=== PATIENT | female | born 1935 | race Caucasian/White ===

== ENCOUNTER → 2016-06-01 | Outpatient (CLI) | payer MEDICARE ==
[~2016-06-01] MED LIST: ASPI81 PO; CALC600T34 PO; LUTE6CAP7 PO; METHTAB PO; OCUVTAB PO; PRIN10TA PO; STOO100C PO; ZOCO80TA PO
[2016-06-01 16:22] LABS: ALKALINE PHOSPHATASE 53 U/L (45-117); TOTAL BILIRUBIN ADULT 0.5 MG/DL (0.2-1.0)
[2016-06-01 16:31] LABS: ALT (GPT) 29 U/L (10-53); AST (GOT) 45 U/L (15-37); INDIRECT BILIRUBIN 0.4 MG/DL (0.0-0.8)
== END ==
LOC: PLAB 12:32
PROVIDERS: ATTEND Internal Medicine Gastroenterology
DX: R93.2 Abnormal findings on diagnostic imaging of liver and biliary tract (principal)
CPT/HCPCS: 36415; 80076

== ENCOUNTER → 2016-07-03 | Outpatient (CLI) | payer MEDICARE ==
[2016-07-03 09:25] LABS: HEMATOCRIT 39.4 % (35.0-46.0); MEAN CELL VOLUME 95.1 FL (80.0-100.0); MEAN CORPUSCULAR HEMOGLOBIN 32.4 PG (27.0-34.0); MEAN CORPUSCULAR HGB CONC 34.1 % (32.0-36.0); PLATELET COUNT 296 TH/MM3 (150-450); RED BLOOD COUNT 4.14 MIL/MM3 (4.00-5.30); RED CELL DISTRIBUTION WIDTH 12.4 % (11.6-17.2); REVIEW FLAG FINAL; WHITE BLOOD COUNT 4.1 TH/MM3 (4.0-11.0)
[2016-07-03 10:24] LABS: ALKALINE PHOSPHATASE 54 U/L (45-117); ALT (GPT) 22 U/L (10-53); ANION GAP 7 MEQ/L (5-15); AST (GOT) 27 U/L (15-37); BICARBONATE 29.7 MEQ/L (21.0-32.0); BLOOD UREA NITROGEN 14 MG/DL (7-18); CHLORIDE 102 MEQ/L (98-107); GLOMERULAR FILTRATION RATE 61 ML/MIN (>89); GLUCOSE,FASTING 74 MG/DL (74-99); HDL CHOLESTEROL 87.1 MG/DL (40.0-60.0); LDL CHOLESTEROL 70 MG/DL (0-99); LDL CHOLESTEROL DIRECT 87 MG/DL (0-99); SODIUM (NA) 139 MEQ/L (136-145); TOTAL BILIRUBIN ADULT 0.6 MG/DL (0.2-1.0)
[2016-07-03 10:26] LABS: POTASSIUM 4.6 MEQ/L (3.5-5.1)
[2016-07-03 10:29] LABS: HEMOGLOBIN A1a 1.1 %; HEMOGLOBIN A1b 0.8 %; HEMOGLOBIN Ao 85.3 %; HEMOGLOBIN F 1.3 %; HEMOGLOBIN LA1C 1.9 %; HEMOGLOBIN P3 3.7 %
== END ==
LOC: PLAB 07:25
PROVIDERS: ATTEND Family Medicine
DX: I25.10 Atherosclerotic heart disease of native coronary artery without angina pectoris (principal); R53.83 Other fatigue; E78.2 Mixed hyperlipidemia; I10 Essential (primary) hypertension; R73.01 Impaired fasting glucose
CPT/HCPCS: 36415; 80053; 80061; 83036; 83721; 84443; 85027

== ENCOUNTER → 2016-08-25 | Outpatient (CLI) | payer MEDICARE ==
[2016-08-25 14:07] LABS: INDIRECT BILIRUBIN 0.2 MG/DL (0.0-0.8); TOTAL BILIRUBIN ADULT 0.3 MG/DL (0.2-1.0)
== END ==
LOC: PLAB 11:16
PROVIDERS: ATTEND Internal Medicine Gastroenterology
DX: R10.13 Epigastric pain (principal); R93.2 Abnormal findings on diagnostic imaging of liver and biliary tract; R93.3 Abnormal findings on diagnostic imaging of other parts of digestive tract; Z12.11 Encounter for screening for malignant neoplasm of colon; Z83.71 Family history of colonic polyps
CPT/HCPCS: 36415; 80076

== ENCOUNTER → 2016-10-19 | Outpatient (CLI) | payer MEDICARE ==
[2016-10-19 09:45] LABS: HEMATOCRIT 41.6 % (35.0-46.0); MEAN CELL VOLUME 95.6 FL (80.0-100.0); MEAN CORPUSCULAR HEMOGLOBIN 31.4 PG (27.0-34.0); MEAN CORPUSCULAR HGB CONC 32.9 % (32.0-36.0); PLATELET COUNT 272 TH/MM3 (150-450); RED BLOOD COUNT 4.35 MIL/MM3 (4.00-5.30); RED CELL DISTRIBUTION WIDTH 12.6 % (11.6-17.2); REVIEW FLAG FINAL; WHITE BLOOD COUNT 4.7 TH/MM3 (4.0-11.0)
[2016-10-19 10:00] LABS: ANION GAP 5 MEQ/L (5-15); AST (GOT) 21 U/L (15-37); BICARBONATE 30.5 MEQ/L (21.0-32.0); BLOOD UREA NITROGEN 16 MG/DL (7-18); CHLORIDE 101 MEQ/L (98-107); GLOMERULAR FILTRATION RATE 62 ML/MIN (>89); GLUCOSE,FASTING 83 MG/DL (74-99); POTASSIUM 4.8 MEQ/L (3.5-5.1); SODIUM (NA) 136 MEQ/L (136-145)
[2016-10-19 10:02] LABS: ALT (GPT) 25 U/L (10-53)
[2016-10-19 10:03] LABS: ALKALINE PHOSPHATASE 59 U/L (45-117); LDL CHOLESTEROL DIRECT 79 MG/DL (0-99); TOTAL BILIRUBIN ADULT 0.5 MG/DL (0.2-1.0)
[2016-10-19 10:23] LABS: LDL CHOLESTEROL 81 MG/DL (0-99)
== END ==
LOC: PLAB 06:57
PROVIDERS: ATTEND Family Medicine
DX: I25.10 Atherosclerotic heart disease of native coronary artery without angina pectoris (principal); E78.2 Mixed hyperlipidemia; I10 Essential (primary) hypertension
CPT/HCPCS: 36415; 80053; 80061; 83721; 85027

== ENCOUNTER → 2017-01-24 | Outpatient (CLI) | payer MEDICARE ==
--- NOTE | 2017-01-23 08:10 | MH ---
cc: EUGENE KWOK DATE OF ADMISSION: 01/24/2017 ADMISSION DIAGNOSIS Cloudy posterior capsule, right eye. HISTORY OF PRESENT ILLNESS This 81-year-old white female is coming through [facility] for the purpose of a YAG laser posterior capsulotomy of the right eye. She has a history of cataract surgery with intraocular lens implants in the past and has done well but has had decrease in visual acuity in the right eye and was found to have a cloudy posterior capsule, greater in the right eye than the left. She has therefore elected to have a YAG laser posterior capsulotomy on the right eye at this time. She does also have a history of macular degeneration which is the wet form in her right eye causing a lot of her acuity problems as well. The patient's retinal specialist Dr. Mcgee told her she could have this procedure, that it might help some. OTHER PAST MEDICAL HISTORY 1. 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 2. Cardiac catheterization. 3. Nuclear stress test, was okay. PAST SURGICAL HISTORY 1. Tonsillectomy and adenoidectomy. 2. Vaginal hysterectomy with CHATO repair in 1979, posterior repair 2007. 3. She has had dental surgeries. 4. The above-mentioned cataract surgery in both eyes. MEDICATIONS Daily medications include: 1. Lutein 20 mg at bedtime. 2. Areds 2 vitamins twice a day. 3. Bethanechol. 4. Omeprazole. 5. Kim. 6. Lisinopril. 7. Estrogen. 8. Zocor. 9. 81 mg of aspirin. 10. Calcium. 11. Osteo Biflex. ALLERGIES No known allergies. SOCIAL HISTORY Noncontributory. FAMILY HISTORY Family history is positive for brother with cataracts. REVIEW OF SYSTEMS Noncontributory. OCULAR EXAM The patient's best corrected visual acuity is 20/400 in the right eye, 20/20 -3 in the left. Visual thompson are full to confrontation testing. Extraocular muscle exam reveals full versions with orthophoria at distance and near. Pupils are 3 mm equal, round, reactive to light without afferent defect. There is distortion on the Amsler grid in the right eye. The left eye is within normal limits. Anterior segment examination reveals some subconjunctival hemorrhage in the right eye secondary to recent intravitreal injection. There is a posterior chamber intraocular lens in place bilaterally with a cloudy posterior capsule much greater in the right eye than the left. Intraocular pressure is 21 in the right eye and 20 in the left by applanation tonometry. Dilated fundus exam revealed sharp disks with cup-to-disk ratio 0.3 bilaterally. There is peripapillary atrophy bilaterally. There is some granularity in the left macula. In the right macula there is retinal pigment epithelial change noted. A posterior vitreous detachment is present bilaterally. There is some drusen noted at the end of the superotemporal vessel arcade. IMPRESSION 1. Cloudy posterior capsule right eye greater than left. 2. Pseudophakia both eyes. 3. Macular degeneration, active in wet form which is severe in the right eye and dry form in the left eye. 4. Posterior vitreous detachment both eyes. PLAN YAG laser posterior capsulotomy of the right eye through [facility]. MD BRO Louis/MARY /9:04 AM /8:06 AM
[~2017-01-24] MED LIST changes: +BALANCED SALT SOLN OPHT IRRIG 15 ML BTL ONE; +FLUOROMETHOLONE 0.25% OPHT SUSP 5 ML BTL ONE; +FLUOROMETHOLONE 0.25% OPHT SUSP 5 ML BTL RIGHT EYE ONE; +HYPROMELLOSE 0.3 % OPTH GEL 10 GM (0.34 FL OZ) TUBE ONE; +PHENYLEPHRINE HCL 2.5% OPTH SOLN 2 ML BTL ONE; +PHENYLEPHRINE HCL 2.5% OPTH SOLN 2 ML BTL RIGHT EYE ONE; +PROPARACAINE HCL 0.5% OPHT SOLN 15 ML BTL ONE; +PROPARACAINE HCL 0.5% OPHT SOLN 15 ML BTL RIGHT EYE ONE; +TROPICAMIDE 1% OPHT SOLN 15 ML BTL ONE; +TROPICAMIDE 1% OPHT SOLN 15 ML BTL RIGHT EYE ONE
--- NOTE | 2017-01-24 11:08 | MP ---
cc: EUGENE SMITH M.D. DATE OF SURGERY 01/24/2017 PREOPERATIVE DIAGNOSIS Cloudy posterior capsule right eye. POSTOPERATIVE DIAGNOSIS Cloudy posterior capsule right eye. OPERATION YAG laser posterior capsulotomy, right eye. SURGEON Eugene Smith MD ANESTHESIA Topical COMPLICATIONS None INDICATIONS See history and physical previously dictated. PROCEDURE The patient arrived at [facility]. Blood pressure was 142/81, pulse 74, respirations 16. A drop of Alphagan P and Mydriacyl were instilled in the right eye. The patient was seated at the YAG laser. A drop of Alcaine was instilled in the right eye and a YAG laser posterior capsulotomy lens was placed on the anterior surface of the right cornea. YAG laser posterior capsulotomy was carried out utilizing 23 exposures of 1.5 millijoules. An adequate opening was seen following the procedure. A drop of Alphagan P was instilled topically. The patient was given a prescription for a topical steroid to be used four times per day and has an appointment for follow up on the first postoperative day in my office. The patient left the [facility] in satisfactory condition. MD BRO Louis/MEME /10:28 AM /10:48 AM
== END ==
LOC: PHSDC 07:14
PROVIDERS: ATTEND Ophthalmology
DX: H26.491 Other secondary cataract, right eye (principal); H35.3210 Exudative age-related macular degeneration, right eye, stage unspecified; H35.3120 Nonexudative age-related macular degeneration, left eye, stage unspecified; H43.813 Vitreous degeneration, bilateral; Z96.1 Presence of intraocular lens

== ENCOUNTER → 2017-02-08 | Outpatient (CLI) | payer MEDICARE ==
[~2017-02-08] MED LIST changes: -BALANCED SALT SOLN OPHT IRRIG 15 ML BTL ONE; -FLUOROMETHOLONE 0.25% OPHT SUSP 5 ML BTL ONE; -FLUOROMETHOLONE 0.25% OPHT SUSP 5 ML BTL RIGHT EYE ONE; -HYPROMELLOSE 0.3 % OPTH GEL 10 GM (0.34 FL OZ) TUBE ONE; -PHENYLEPHRINE HCL 2.5% OPTH SOLN 2 ML BTL ONE; -PHENYLEPHRINE HCL 2.5% OPTH SOLN 2 ML BTL RIGHT EYE ONE; -PROPARACAINE HCL 0.5% OPHT SOLN 15 ML BTL ONE; -PROPARACAINE HCL 0.5% OPHT SOLN 15 ML BTL RIGHT EYE ONE; -TROPICAMIDE 1% OPHT SOLN 15 ML BTL ONE; -TROPICAMIDE 1% OPHT SOLN 15 ML BTL RIGHT EYE ONE
[2017-02-08 09:59] LABS: HEMATOCRIT 41.6 % (35.0-46.0); MEAN CELL VOLUME 97.7 FL (80.0-100.0); MEAN CORPUSCULAR HEMOGLOBIN 32.9 PG (27.0-34.0); MEAN CORPUSCULAR HGB CONC 33.7 % (32.0-36.0); PLATELET COUNT 298 TH/MM3 (150-450); RED BLOOD COUNT 4.26 MIL/MM3 (4.00-5.30); REVIEW FLAG FINAL; WHITE BLOOD COUNT 4.8 TH/MM3 (4.0-11.0)
[2017-02-08 10:24] LABS: ANION GAP 5 MEQ/L (5-15); AST (GOT) 19 U/L (15-37); BICARBONATE 30.8 MEQ/L (21.0-32.0); BLOOD UREA NITROGEN 17 MG/DL (7-18); CHLORIDE 99 MEQ/L (98-107); GLOMERULAR FILTRATION RATE 67 ML/MIN (>89); GLUCOSE,FASTING 80 MG/DL (74-99); SODIUM (NA) 135 MEQ/L (136-145)
[2017-02-08 10:30] LABS: ALKALINE PHOSPHATASE 56 U/L (45-117); ALT (GPT) 21 U/L (10-53); HDL CHOLESTEROL 92.7 MG/DL (40.0-60.0); LDL CHOLESTEROL 69 MG/DL (0-99); LDL CHOLESTEROL DIRECT 85 MG/DL (0-99); TOTAL BILIRUBIN ADULT 0.5 MG/DL (0.2-1.0)
== END ==
LOC: PLAB 07:33
PROVIDERS: ATTEND Family Medicine
DX: I25.10 Atherosclerotic heart disease of native coronary artery without angina pectoris (principal); E78.2 Mixed hyperlipidemia; I10 Essential (primary) hypertension
CPT/HCPCS: 36415; 80053; 80061; 83721; 85027

== ENCOUNTER → 2017-02-16 | Outpatient (CLI) | payer MEDICARE ==
[2017-02-16 16:15] LABS: INDIRECT BILIRUBIN 0.3 MG/DL (0.0-0.8); TOTAL BILIRUBIN ADULT 0.4 MG/DL (0.2-1.0)
== END ==
LOC: PLAB 11:50
PROVIDERS: ATTEND Internal Medicine Gastroenterology
DX: R74.0 Nonspecific elevation of levels of transaminase and lactic acid dehydrogenase [LDH] (principal)
CPT/HCPCS: 36415; 80076

== ENCOUNTER → 2017-05-07 | Outpatient (CLI) | payer MEDICARE ==
[2017-05-07 09:42] LABS: HEMATOCRIT 40.4 % (35.0-46.0); HEMOGLOBIN 13.7 GM/DL (11.6-15.3); MEAN CELL VOLUME 96.3 FL (80.0-100.0); MEAN CORPUSCULAR HEMOGLOBIN 32.8 PG (27.0-34.0); MEAN PLATELET VOLUME 8.6 FL (7.0-11.0); PLATELET COUNT 286 TH/MM3 (150-450); RED BLOOD COUNT 4.19 MIL/MM3 (4.00-5.30); RED CELL DISTRIBUTION WIDTH 11.9 % (11.6-17.2); WHITE BLOOD COUNT 4.6 TH/MM3 (4.0-11.0)
[2017-05-07 10:03] LABS: ALBUMIN 3.6 GM/DL (3.4-5.0); BICARBONATE 29.9 MEQ/L (21.0-32.0); BLOOD UREA NITROGEN 14 MG/DL (7-18); CALCIUM 8.6 MG/DL (8.5-10.1); CHLORIDE 99 MEQ/L (98-107); CREATININE 0.83 MG/DL (0.50-1.00); GLOMERULAR FILTRATION RATE 66 ML/MIN (>89); GLUCOSE,FASTING 80 MG/DL (74-99); SODIUM (NA) 135 MEQ/L (136-145)
[2017-05-07 10:05] LABS: ALT (GPT) 25 U/L (10-53); AST (GOT) 20 U/L (15-37); CHOLESTEROL 182 MG/DL (120-200); TRIGLYCERIDES 62 MG/DL (42-150)
[2017-05-07 10:08] LABS: ALKALINE PHOSPHATASE 61 U/L (45-117); CHOLESTEROL/ HDL RATIO 2.14 RATIO; HDL CHOLESTEROL 84.8 MG/DL (40.0-60.0); LDL CHOLESTEROL 85 MG/DL (0-99); LDL CHOLESTEROL DIRECT 85 MG/DL (0-99); TOTAL BILIRUBIN ADULT 0.5 MG/DL (0.2-1.0); TOTAL PROTEIN 7.3 GM/DL (6.4-8.2)
== END ==
LOC: PLAB 07:31
PROVIDERS: ATTEND Family Medicine
DX: I25.10 Atherosclerotic heart disease of native coronary artery without angina pectoris (principal); E78.2 Mixed hyperlipidemia; I10 Essential (primary) hypertension
CPT/HCPCS: 36415; 80053; 80061; 83721; 85027

== ENCOUNTER → 2017-08-09 | Outpatient (CLI) | payer MEDICARE ==
[2017-08-09 13:04] LABS: HEMATOCRIT 40.1 % (35.0-46.0); HEMOGLOBIN 13.5 GM/DL (11.6-15.3); MEAN CELL VOLUME 96.2 FL (80.0-100.0); MEAN CORPUSCULAR HEMOGLOBIN 32.4 PG (27.0-34.0); MEAN CORPUSCULAR HGB CONC 33.7 % (32.0-36.0); MEAN PLATELET VOLUME 8.5 FL (7.0-11.0); PLATELET COUNT 284 TH/MM3 (150-450); RED BLOOD COUNT 4.17 MIL/MM3 (4.00-5.30); RED CELL DISTRIBUTION WIDTH 12.2 % (11.6-17.2); WHITE BLOOD COUNT 4.9 TH/MM3 (4.0-11.0)
[2017-08-09 13:08] LABS: ALBUMIN 3.6 GM/DL (3.4-5.0); AST (GOT) 25 U/L (15-37); BICARBONATE 30.2 MEQ/L (21.0-32.0); BLOOD UREA NITROGEN 16 MG/DL (7-18); CALCIUM 8.9 MG/DL (8.5-10.1); CHLORIDE 104 MEQ/L (98-107); CREATININE 0.86 MG/DL (0.50-1.00); GLOMERULAR FILTRATION RATE 63 ML/MIN (>89); GLUCOSE,FASTING 80 MG/DL (74-99); SODIUM (NA) 140 MEQ/L (136-145)
[2017-08-09 13:09] LABS: ALT (GPT) 27 U/L (10-53); CHOLESTEROL 172 MG/DL (120-200)
[2017-08-09 13:19] LABS: ALKALINE PHOSPHATASE 54 U/L (45-117); HDL CHOLESTEROL 81.6 MG/DL (40.0-60.0); LDL CHOLESTEROL 76 MG/DL (0-99); LDL CHOLESTEROL DIRECT 83 MG/DL (0-99); TOTAL BILIRUBIN ADULT 0.5 MG/DL (0.2-1.0); TOTAL PROTEIN 7.2 GM/DL (6.4-8.2); TRIGLYCERIDES 72 MG/DL (42-150)
[2017-08-09 14:53] LABS: HEMOGLOBIN A1C 5.6 % (4.3-6.0)
== END ==
LOC: PLAB 07:10
PROVIDERS: ATTEND Family Medicine
DX: I25.10 Atherosclerotic heart disease of native coronary artery without angina pectoris (principal); R53.83 Other fatigue; E78.2 Mixed hyperlipidemia; I10 Essential (primary) hypertension; R73.01 Impaired fasting glucose
CPT/HCPCS: 36415; 80053; 80061; 83036; 83721; 84443; 85027